=== PATIENT | female | born 2000 | race American Indian/Alaskan Native ===

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

== ENCOUNTER 2018-03-30 15:48 | Emergency (ER) | payer BC ==
[2018-03-30 16:47] VITALS: PULSE 74; RESP 16; TEMP 98.4; O2SAT 100
[2018-03-30 16:48] VITALS: BP 105/63
[2018-03-30] MEDS ORDERED: Albuterol-Ipratrop 3 mg / 0.5 (3 ml) UD INH STA (17:12)
--- NOTE | 2018-03-30 17:15 | ED PDOC ---
History of Present Illness History of Present Illness: 17 year old female presents to the emergency department for evaluation of asthma exacerbation. Patient states she has had wheezing and dry cough not relieved by albuterol pump. Patient denies any fever or chills. She denies any chest pain. PMD: Jose Belcher HPI: Influenza Time Seen by Provider: 03/30/18 16:51 Chief Complaint: Cough, Cold, Congestion Chief Complaint (Provider): asthma symptoms, cough History Per: Patient Exam Limitations: no limitations Past Medical History Reviewed: Historical Data, Nursing Documentation, Vital Signs Vital Signs: Last Vital Signs Temp 98.4 F 03/30/18 16:43 Pulse 74 03/30/18 16:43 Resp 16 03/30/18 16:43 BP 105/63 03/30/18 16:43 Pulse Ox 100 03/30/18 16:43 - Medical History PMH: Asthma - Surgical History Surgical History: No Surg Hx - Family History Family History: States: No Known Family Hx - Living Arrangements Living Arrangements: With Family - Social History Current smoker - smoking cessation education provided: Yes Alcohol: None Drugs: Denies - Home Medications Home Medications: Ambulatory Orders Medication Instructions Recorded Acetaminophen [Tylenol] 325 mg PO Q6 PRN #20 tab 09/27/14 Albuterol 1 unit NEB Q6 PRN 09/27/14 Cephalexin [cephalexin] 500 mg PO BID #10 cap 06/08/17 Cyclobenzaprine [Cyclobenzaprine 10 mg PO Q8H PRN #12 tab 12/28/17 HCl] Albuterol HFA [Ventolin HFA 90 1 puff IH ASDIR #1 unit 03/30/18 mcg/actuation (8 g)] Prednisone 50 mg PO DAILY #5 tablet 03/30/18 - Allergies Allergies/Adverse Reactions: Allergies Allergy/AdvReac Type Severity Reaction Status Date / Time ibuprofen Allergy SWELLING Verified 06/08/17 16:08 Review of Systems ROS Statement: Except As Marked, All Systems Reviewed And Found Negative Constitutional: Negative for: Fever, Chills Cardiovascular: Negative for: Palpitations Respiratory: Positive for: Cough (dry), Shortness of Breath, SOB with Exertion, Wheezing. Negative for: Hemoptysis, Sputum Gastrointestinal: Negative for: Nausea, Vomiting Physical Exam - Reviewed Nursing Documentation Reviewed: Yes Vital Signs Reviewed: Yes - Physical Exam Appears: Positive for: Well, Non-toxic, No Acute Distress Head Exam: Positive for: ATRAUMATIC, NORMAL INSPECTION, NORMOCEPHALIC Skin: Positive for: Normal Color. Negative for: Rash Eye Exam: Positive for: Normal appearance Cardiovascular/Chest: Positive for: Regular Rate, Rhythm Respiratory: Positive for: Decreased Breath Sounds, Wheezing (slight, bilaterally). Negative for: Accessory Muscle Use, Rhonchi, Respiratory Distress Back: Negative for: L CVA Tenderness, R CVA Tenderness Extremity: Positive for: Normal ROM Neurologic/Psych: Positive for: Alert, Oriented Medical Decision Making Medical Decision Making: Time: 17:12 Initial Impression: 17 year old female with asthma exacerbation Initial Plan: --Urine --CXR --Duoneb 3 ml INH, pre peak flow: 325, post peak flow: 350, with clinical improvement --Prednisone 60 mg PO Patient states she feels better after meds given in ED. Patient is aware of diagnostic testing results. All questions answered. Rx given for prednisone and ventolin inhaler. Patient was advised to follow up with PMD in 2-3 days. Smoking cessation instructions given. Scribe Attestation: Documented by Ela Albarran, acting as a scribe for Ines Marshall PA-C. Provider Scribe Attestation: All medical record entries made by the Scribe were at my direction and personally dictated by me. I have reviewed the chart and agree that the record accurately reflects my personal performance of the history, physical exam, medical decision making, and the department course for this patient. I have also personally directed, reviewed, and agree with the discharge instructions and disposition. - Laboratory Results Urine POC: Negative (patient signed waiver for , she is certain she is not ) - ECG O2 Sat by Pulse Oximetry: 100 Pulse Ox Interpretation: Normal - Other Rad CXR X-Ray: Interpreted by Me, Viewed By Me X-Ray Interpretation: no acute finding Disposition - Clinical Impression Clinical Impression: Asthma exacerbation - Patient ED Disposition Is Patient to be Admitted: No Counseled Patient/Family Regarding: Studies Performed, Diagnosis, Need For Followup, Rx Given, Smoking Cessation - Disposition Referrals: Jose Belcher MD [Staff Provider] - Disposition: Routine/Home Disposition Time: 18:30 Condition: IMPROVED Additional Instructions: Take rx meds as directed. Stop smoking! Follow up in 2-3 days with primary care doctor. Prescriptions: Albuterol HFA [Ventolin HFA 90 mcg/actuation (8 g)] 1 puff IH ASDIR #1 unit Prednisone 50 mg PO DAILY #5 tablet Instructions: Asthma, Adult (DC), Avoiding Asthma Triggers, Quitting Smoking Forms: [facility] (Cam[place]onian)
[2018-03-30] MEDS ORDERED: Albuterol-Ipratrop 3 mg / 0.5 (3 ml) UD ONE (17:35)
--- NOTE | 2018-03-30 18:23 | RAD ---
Date of service: 03/30/2018 HISTORY: Cough. COMPARISON: No prior. TECHNIQUE: Chest PA and lateral FINDINGS: LUNGS: No active pulmonary disease. PLEURA: No significant pleural effusion identified. No pneumothorax apparent. CARDIOVASCULAR: Normal. OSSEOUS STRUCTURES: No significant abnormalities. VISUALIZED UPPER ABDOMEN: Normal. OTHER FINDINGS: None. IMPRESSION: No active disease.
== END 2018-03-30 18:20 | disposition home or self-care (01) ==
LOC: H.ER 15:48
DX: J45.901 Unspecified asthma with (acute) exacerbation (principal); F17.200 Nicotine dependence, unspecified, uncomplicated